=== PATIENT | female | born 1960 | race Two or more races ===

== ENCOUNTER → 2017-11-13 | Outpatient (CLI) | payer MEDICARE ==
[~2017-11-13] MED LIST: BACL20TA PO; CLON0.5T PO; OMNIPAQUE 350 MG/ML, 100ML BOTTLE ONE; PREG150C PO; PREG225C PO; TRAZ150T62 PO
== END | disposition home or self-care (01) ==
LOC: CFH 14:04
PROVIDERS: ATTEND Internal Medicine Gastroenterology
DX: K59.00 Constipation, unspecified (principal); K74.60 Unspecified cirrhosis of liver; R63.6 Underweight
CPT/HCPCS: 74177; Q9967